=== PATIENT | male | born 1975 | race Caucasian/White ===

== ENCOUNTER 2020-12-26 15:37 | Emergency (ER) | payer OTHER ==
[~2020-12-26] VITALS: Ht 177.8 cm; Wt 93.0 kg
[2020-12-26] MEDS ORDERED: ADDERALL 30 MG30 MG (15:56)
== END 2020-12-26 18:20 | disposition home or self-care (01) ==
LOC: ER 15:37
DX: R53.81 Other malaise (principal); Z11.52 Encounter for screening for COVID-19